=== PATIENT | male | born 1985 | race Caucasian/White ===

== ENCOUNTER 2018-05-05 10:03 | Emergency (ER) | payer MEDICAID ==
[~2018-05-05] VITALS: Ht 188 cm; Wt 83.9 kg
[2018-05-05 10:05] VITALS: BP 138/85
[2018-05-05] MEDS ORDERED: ACETAMINOPHEN 325 MG TABLET ONE (10:29)
[2018-05-05] MEDS ORDERED: ACETAMINOPHEN 325 MG TABLET PO ONE (10:30)
== END 2018-05-05 11:59 | disposition home or self-care (01) ==
LOC: ED 11:00
DX: S62.364A Nondisplaced fracture of neck of fourth metacarpal bone, right hand, initial encounter for closed fracture (principal); S62.366A Nondisplaced fracture of neck of fifth metacarpal bone, right hand, initial encounter for closed fracture; J45.909 Unspecified asthma, uncomplicated; F17.210 Nicotine dependence, cigarettes, uncomplicated; X58.XXXA Exposure to other specified factors, initial encounter; Y93.89 Activity, other specified; Y92.009 Unspecified place in unspecified non-institutional (private) residence as the place of occurrence of the external cause; Y99.8 Other external cause status
CPT/HCPCS: 29125; 99284

== ENCOUNTER 2018-09-13 09:16 | Emergency (ER) | payer MEDICAID, OTHER ==
[~2018-09-13] VITALS: Ht 188 cm; Wt 86.3 kg
[2018-09-13 09:30] VITALS: BP 137/88
[2018-09-13 10:41] LABS: RAPID INFLUENZA A Negative (Negative); RAPID INFLUENZA B Negative (Negative)
== END 2018-09-13 11:02 | disposition home or self-care (01) ==
LOC: ED 10:49
DX: J00 Acute nasopharyngitis [common cold] (principal); J45.909 Unspecified asthma, uncomplicated
CPT/HCPCS: 87400; 99283

== ENCOUNTER 2019-03-22 14:53 | Emergency (ER) | payer MEDICAID ==
[~2019-03-22] VITALS: Ht 188 cm; Wt 89.4 kg
[2019-03-22 14:55] VITALS: BP 151/90
[2019-03-22] MEDS ORDERED: CEFTRIAXONE 250 MG ONE (15:19)
[2019-03-22] MEDS ORDERED: AZITHROMYCIN 250 MG TABLET ONE (15:20)
[2019-03-22] MEDS ORDERED: AZITHROMYCIN 500 MG TABLET PO ONE (15:30)
[2019-03-22] MEDS ORDERED: CEFTRIAXONE 250 MG IM ONE (15:30)
--- NOTE | 2019-03-22 15:35 | NUR ---
Patient/Caregiver given discharge instructions and they have confirmed that they understand the instructions. Patient ambulatory with steady gait.
[2019-03-22 15:47] LABS: MICROSCOPIC NOT IND
[2019-03-22 15:49] LABS: CULTURE INDICATED? NO
== END 2019-03-22 15:36 | disposition home or self-care (01) ==
LOC: ED 15:29
DX: A56.8 Sexually transmitted chlamydial infection of other sites (principal); A54.9 Gonococcal infection, unspecified; J45.909 Unspecified asthma, uncomplicated
CPT/HCPCS: 81003; 87491; 87591; 96372; 99283; J0696

== ENCOUNTER 2019-05-08 12:20 | Emergency (ER) | payer MEDICAID ==
[~2019-05-08] VITALS: Ht 188 cm; Wt 86.0 kg
[2019-05-08 12:22] VITALS: BP 138/90
[2019-05-08] MEDS ORDERED: ACETAMINOPHEN 500 MG TABLET ONE (12:44)
[2019-05-08] MEDS ORDERED: IBUPROFEN 800 MG TABLET ONE (12:44)
--- NOTE | 2019-05-08 12:49 | NUR ---
Medications given per mar; verbalized understanding. Awaiting imaging results
[2019-05-08] MEDS ORDERED: IBUPROFEN 800 MG TABLET PO ONE (13:00)
[2019-05-08] MEDS ORDERED: ACETAMINOPHEN 500 MG TABLET PO ONE (13:00)
== END 2019-05-08 13:39 | disposition home or self-care (01) ==
LOC: ED 12:52
DX: S56.911A Strain of unspecified muscles, fascia and tendons at forearm level, right arm, initial encounter (principal); F17.210 Nicotine dependence, cigarettes, uncomplicated; J45.909 Unspecified asthma, uncomplicated; X50.1XXA Overexertion from prolonged static or awkward postures, initial encounter; Y93.89 Activity, other specified; Y92.89 Other specified places as the place of occurrence of the external cause; Y99.8 Other external cause status
CPT/HCPCS: 99283

== ENCOUNTER 2019-09-14 21:44 | Emergency (ER) | payer MEDICAID ==
[~2019-09-14] VITALS: Ht 188 cm; Wt 87.0 kg
--- NOTE | 2019-09-14 22:06 | NUR ---
Patient states he started feeling fatigued about 8 days ago followed by coughing. A few days later he experienced N/V/D. Patient denies abd pain. Patient does not appear in distress.
[2019-09-14] MEDS ORDERED: ALBUTEROL/IPRATROPIUM 2.5MG/0.5MG, 3 ML ONE (22:16)
[2019-09-14] MEDS ORDERED: ALBUTEROL/IPRATROPIUM 2.5MG/0.5MG, 3 ML NPPB ONE (22:30)
[2019-09-14 23:11] VITALS: BP 131/78
== END 2019-09-14 23:15 | disposition home or self-care (01) ==
LOC: ED 22:02
DX: J06.9 Acute upper respiratory infection, unspecified (principal); R51 Headache; M54.9 Dorsalgia, unspecified; F17.210 Nicotine dependence, cigarettes, uncomplicated
CPT/HCPCS: 71046; 94640; 99283; J7512; J7620

== ENCOUNTER 2020-04-14 14:37 | Emergency (ER) | payer MEDICAID ==
[~2020-04-14] VITALS: Ht 188 cm; Wt 93.1 kg
[2020-04-14 14:40] VITALS: BP 132/94
--- NOTE | 2020-04-14 16:11 | NUR ---
NOT IN LOBBY AT [id number]
--- NOTE | 2020-04-14 16:13 | NUR ---
NOT IN LOBBY @ [id number]
--- NOTE | 2020-04-14 16:34 | NUR ---
NOT IN LOBBY @ [id number]
== END 2020-04-14 16:36 | disposition left against medical advice (07) ==
LOC: ED 16:30
DX: R10.9 Unspecified abdominal pain (principal); Z53.21 Procedure and treatment not carried out due to patient leaving prior to being seen by health care provider

== ENCOUNTER 2021-01-02 01:27 | Emergency (ER) | payer MEDICAID ==
[~2021-01-02] VITALS: Ht 188 cm; Wt 94.1 kg
[2021-01-02 01:31] VITALS: BP 133/92
[2021-01-02] MEDS ORDERED: PROPARACAINE OPHTH 0.5%, 15ML ONE (01:48)
[2021-01-02] MEDS ORDERED: FLUORESCEIN OPHTHALMIC 1 MG STRIP ONE (01:48)
--- NOTE | 2021-01-02 02:06 | NUR ---
CC OF PAIN IN RIGHT EYE. RIGHT EYE SWOLLEN. PT IN CHAIR, AGRICULTURE INTERN AT BEDSIDE.
[2021-01-02] MEDS ORDERED: POLYTRIM OPHTH 10ML RIGHTEYE ONE (02:30)
== END 2021-01-02 02:37 | disposition home or self-care (01) ==
LOC: ED 02:35
DX: T15.01XA Foreign body in cornea, right eye, initial encounter (principal); H10.021 Other mucopurulent conjunctivitis, right eye; H57.11 Ocular pain, right eye; J45.909 Unspecified asthma, uncomplicated; X58.XXXA Exposure to other specified factors, initial encounter; Y93.9 Activity, unspecified; Y92.89 Other specified places as the place of occurrence of the external cause; Y99.8 Other external cause status
CPT/HCPCS: 65222; 99284